=== PATIENT | female | born 1960 | race Caucasian/White ===

== ENCOUNTER 2020-01-22 05:25 | Emergency (ER) | payer BC ==
[2020-01-22] MEDS ORDERED: Lactated Ringers 1,000 ML IV ONE (05:50)
[2020-01-22] MEDS ORDERED: Ondansetron 4 MG/2 ML SDV IV ONE (05:50)
[2020-01-22] MEDS ORDERED: Haloperidol Lactate 5 MG/ML SDV IVPUSH ONE (05:51)
--- NOTE | 2020-01-22 05:55 | EDM.PDOC ---
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(s), Other (see below) - Related Data Allergies Allergy/AdvReac Type Severity Reaction Status Date / Time No Known Allergies Allergy Verified 01/22/20 05:47 Home Meds: Home Meds Aspirin [Aspirin EC] 325 mg PO DAILY 01/19/20 [History] Dipyridamole 75 mg PO BID 01/19/20 [History] Fenofibrate 160 mg PO DAILY 01/19/20 [History] Morphine [MS Contin] 15 mg PO TID 01/19/20 [History] Prochlorperazine [Compazine] 10 mg PO Q4H PRN 01/19/20 [History] hydroCHLOROthiazide [Hydrochlorothiazide] 12.5 mg PO DAILY 01/19/20 [History] metFORMIN [Glucophage XR] 500 mg PO BIDMEALS 01/19/20 [History] oxyCODONE 10 mg PO Q4H PRN 01/19/20 [History] ED EXAM, GI/ABD - Physical Exam Text/Narrative:: Exam unchanged from exam documented by the ACCOUNTS RECEIVABLE SPECIALIST for this encounter. Departure - Departure Time of Disposition: 10:00 Disposition: Home, Self-Care 01 Condition: Fair Clinical Impression: Chemotherapy induced nausea and vomiting, Personal history of malignant neoplasm of pancreas, Hypomagnesemia, Hypokalemia, Dehydration - Discharge Information *PRESCRIPTION DRUG MONITORING PROGRAM REVIEWED*: Not Applicable *COPY OF PRESCRIPTION DRUG MONITORING REPORT IN PATIENT PABLO: Not Applicable Instructions: Nausea and Vomiting, Adult, [id number], Dehydration, Adult, [id number], Potassium Content of Foods Forms: ED Department Discharge Additional Instructions: Rx: Zofran ODT 8mg Drink plenty of water. Follow up with your oncologist or primary clinic as needed. <Ivan Pack - Last Filed: 01/23/20 17:35> ED HPI GENERAL MEDICAL PROBLEM - General Source of Information: Reports: Patient History Limitations: Reports: No Limitations - History of Present Illness INITIAL COMMENTS - FREE TEXT/NARRATIVE: Patient comes emergency department today from home with complaints of nausea vomiting and dehydration. This patient just had her first round of chemotherapy on for pancreatic cancer. For the past 2 days she has been unable to eat or drink anything. She initially had some diarrhea but this has resolved. She has been on no antibiotics recently. She has had no fever chills generalized aches or pains. She does have some malaise and fatigue. No chest pain no shortness of breath or difficulty breathing. No cough or congestion. She does complain of generalized weakness no syncope or palpitations. No covert exposure no covert symptoms. She has abdominal pain when she has vomiting but this resolves on its own following the discontinuation of the vomiting. No hematuria dysuria or urinary frequency. No black or tarry stools. 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 Musculoskeletal History: Reports: Arthritis Neurological History: Reports: TIA Psychiatric History: Reports: Anxiety Endocrine/Metabolic History: Reports: Diabetes, Type II Hematologic History: Reports: None Immunologic History: Reports: None Oncologic (Cancer) History: Reports: Breast, Pancreatic Dermatologic History: Reports: None - Infectious Disease History Infectious Disease History: Reports: None - Past Surgical History HEENT Surgical History: Reports: Tonsillectomy Cardiovascular Surgical History: Reports: None Respiratory Surgical History: Reports: None GI Surgical History: Reports: None Female Surgical History: Reports: Breast Biopsy, Breast Reduction, Mastectomy Neurological Surgical History: Reports: None Musculoskeletal Surgical History: Reports: None Oncologic Surgical History: Reports: Biopsy of Breast, Mastectomy Social & Family History - Family History Family Medical History: Noncontributory - Tobacco Use Smoking Status *Q: Current Every Day Smoker Years of Tobacco use: 40 Packs/Tins Daily: 0.5 - Caffeine Use Caffeine Use: Reports: None - Recreational Drug Use Recreational Drug Use: No ED ROS GENERAL - Review of Systems Review Of Systems: Comprehensive ROS is negative, except as noted in HPI. ED EXAM, GI/ABD - Physical Exam Exam: See Below Exam Limited By: No Limitations General Appearance: Alert, WD/WN, No Apparent Distress Eyes: Bilateral: EOMI Ears: Normal External Exam Nose: Normal Inspection Throat/Mouth: No: Normal Inspection (Oral mucosa is quite dry), Normal Lips (Lips are dry and cracked) Head: Atraumatic, Normocephalic Neck: Normal Inspection, Supple Respiratory/Chest: No Respiratory Distress, Lungs Clear, Normal Breath Sounds, Chest Non-Tender Cardiovascular: Normal Peripheral Pulses, Regular Rate, Rhythm GI/Abdominal Exam: Normal Bowel Sounds, Soft, Non-Tender, No Distention (Female) Exam: Deferred Rectal (Female) Exam: Deferred Back Exam: Normal Inspection Extremities: Normal Inspection, Normal Range of Motion, Normal Capillary Refill Neurological: Alert, Oriented, Normal Cognition, No Motor/Sensory Deficits Psychiatric: Normal Affect, Normal Mood Skin Exam: Dry, Intact, Normal Color, Cool Lymphatic: No Adenopathy Course - Vital Signs Last Recorded V/S: Last Vital Signs Temp 97.3 F 01/22/20 05:43 Pulse 101 H 01/22/20 05:43 Resp 16 01/22/20 05:43 BP 136/83 01/22/20 05:43 Pulse Ox 95 01/22/20 05:43 - Orders/Labs/Meds Labs: Laboratory Tests 01/22/20 01/22/20 01/22/20 Range/Units 06:00 06:00 06:00 WBC 4.0 L (5.0-10.0) 10^3/uL RBC 3.66 L (4.2-5.4) 10^6/uL Hgb 10.1 L (12.0-16.0) g/dL Hct 31.4 L (37.0-47.0) % MCV 85.8 (80-100) fL MCH 27.6 (27.0-34.0) pg MCHC 32.2 L (33.0-35.0) g/dL Plt Count 223 (150-450) 10^3/uL Neut % (Auto) 73.1 (42.2-75.2) % Lymph % (Auto) 21.2 (20.5-50.1) % [place] % (Auto) 1.0 L (2-8) % Eos % (Auto) 4.2 H (1.0-3.0) % Baso % (Auto) 0.5 (0.0-1.0) % Sodium 137 (136-145) mmol/L Potassium 3.2 L (3.5-5.1) mmol/L Chloride 96 L (98-107) mmol/L Carbon Dioxide 30 (21-32) mmol/L Anion Gap 14.2 H (7-13) mEq/L BUN 28 H (7-18) mg/dL Creatinine 1.38 H (0.55-1.02) mg/dL Est Cr Clr Drug Dosing 36.97 mL/min Estimated GFR (MDRD) 39 BUN/Creatinine Ratio 20.3 (No establ ref range) Glucose 169 H (74-99) mg/dL Lactic Acid 1.0 (0.4-2.0) mmol/L Calcium 10.0 (8.5-10.1) mg/dL Magnesium 1.5 L (1.8-2.4) mg/dL Total Bilirubin 0.6 (0.2-1.0) mg/dL AST 17 (15-37) U/L ALT 13 L (14-59) U/L Alkaline Phosphatase 63 (46-116) U/L C-Reactive Protein 4.3 H (0.0-0.9) mg/dL Total Protein 7.5 (6.4-8.2) g/dL Albumin 3.4 (3.4-5.0) g/dL Globulin 4.1 Albumin/Globulin Ratio 0.8 Lipase 36 L (73-393) U/L Urine Color (YELLOW) Urine Appearance (CLEAR) Urine pH (5.0-9.0) Ur Specific [place] (1.005-1.030) Urine Protein (NEGATIVE) Urine Glucose (UA) (NEGATIVE) Urine Ketones (NEGATIVE) Urine Occult Blood (NEGATIVE) Urine Nitrite (NEGATIVE) Urine Bilirubin (NEGATIVE) Urine Urobilinogen (0.2-1.0) mg/dL Ur Leukocyte Esterase (NEGATIVE) Urine RBC /HPF Urine WBC (0-5/HPF) /HPF Ur Epithelial Cells (NOT SEEN) /HPF Amorphous Sediment (NOT SEEN) /HPF Urine Bacteria (0-FEW/HPF) /HPF Granular Casts (Auto) Urine Mucus (NOT SEEN) /LPF 09/08/20 Range/Units 07:15 WBC (5.0-10.0) 10^3/uL RBC (4.2-5.4) 10^6/uL Hgb (12.0-16.0) g/dL Hct (37.0-47.0) % MCV (80-100) fL MCH (27.0-34.0) pg MCHC (33.0-35.0) g/dL Plt Count (150-450) 10^3/uL Neut % (Auto) (42.2-75.2) % Lymph % (Auto) (20.5-50.1) % [place] % (Auto) (2-8) % Eos % (Auto) (1.0-3.0) % Baso % (Auto) (0.0-1.0) % Sodium (136-145) mmol/L Potassium (3.5-5.1) mmol/L Chloride (98-107) mmol/L Carbon Dioxide (21-32) mmol/L Anion Gap (7-13) mEq/L BUN (7-18) mg/dL Creatinine (0.55-1.02) mg/dL Est Cr Clr Drug Dosing mL/min Estimated GFR (MDRD) BUN/Creatinine Ratio (No establ ref range) Glucose (74-99) mg/dL Lactic Acid (0.4-2.0) mmol/L Calcium (8.5-10.1) mg/dL Magnesium (1.8-2.4) mg/dL Total Bilirubin (0.2-1.0) mg/dL AST (15-37) U/L ALT (14-59) U/L Alkaline Phosphatase (46-116) U/L C-Reactive Protein (0.0-0.9) mg/dL Total Protein (6.4-8.2) g/dL Albumin (3.4-5.0) g/dL Globulin Albumin/Globulin Ratio Lipase (73-393) U/L Urine Color Dark yellow (YELLOW) Urine Appearance Slightly cloudy (CLEAR) Urine pH 7.0 (5.0-9.0) Ur Specific [place] 1.025 (1.005-1.030) Urine Protein 30 H (NEGATIVE) Urine Glucose (UA) Negative (NEGATIVE) Urine Ketones Trace H (NEGATIVE) Urine Occult Blood Moderate H (NEGATIVE) Urine Nitrite Negative (NEGATIVE) Urine Bilirubin Small H (NEGATIVE) Urine Urobilinogen 0.2 (0.2-1.0) mg/dL Ur Leukocyte Esterase Negative (NEGATIVE) Urine RBC 20-30 H /HPF Urine WBC 0-5 (0-5/HPF) /HPF Ur Epithelial Cells Moderate H (NOT SEEN) /HPF Amorphous Sediment Few (NOT SEEN) /HPF Urine Bacteria Few (0-FEW/HPF) /HPF Granular Casts (Auto) Occasional Urine Mucus Rare (NOT SEEN) /LPF Meds: Medications Discontinued Medications Generic Name Dose Route Start Last Admin Trade Name Freq PRN Reason Stop Dose Admin Haloperidol Lactate 1.25 mg 01/22/20 05:51 01/22/20 06:08 Haldol IVPUSH 01/22/20 05:52 1.25 mg ONETIME ONE Administration Lactated Ringer's 1,000 mls @ 1,000 mls/hr 01/22/20 05:50 01/22/20 09:43 Ringers, Lactated IV 01/22/20 06:49 Infused .BOLUS ONE Infusion Magnesium Sulfate 2 gm/ Premix 50 mls @ 25 mls/hr 01/22/20 06:41 01/22/20 09:43 IV 01/22/20 08:40 Infused ONETIME ONE Infusion Potassium Chloride/Sodium Chloride 1,000 mls @ 500 mls/hr 01/22/20 07:00 01/22/20 07:33 Normal Saline With 20 Meq Kcl IV 250 mls/hr ASDIRECTED [facility] Administration Ondansetron HCl 4 mg 01/22/20 05:50 01/22/20 06:08 Zofran IV 01/22/20 05:51 4 mg ONETIME ONE Administration - Re-Assessments/Exams Free Text/Narrative Re-Assessment/Exam: 01/22/20 05:55 Labs drawn. UA pending. 1 L LR wide open. Ondansetron 4 mg IV push. Haloperidol 1.25 mg IV push. Labs with hypokalemia as well as hypomagnesemia. 1 liter of NS with 20meq of K at 500mls/hr. 2 grams Mag sulfate IVPB care to Dr. Stanford at the change of shift 0700. Sepsis Event Note (ED) - Evaluation Sepsis Screening Result: No Definite Risk
[2020-01-22 06:39] LABS: ANION GAP 14.2 mEq/L (7-13)
[2020-01-22] MEDS ORDERED: Magnesium Sulfate/Water 2 GM in Premix Bag 1 BAG IV ONE (06:41)
[2020-01-22] MEDS ORDERED: NS + KCl 20mEq/L 1,000 ML IV SCH (07:00)
== END 2020-01-22 09:50 | disposition home or self-care (01) ==
LOC: DL.ED 05:25
DX: E86.0 Dehydration (principal); R11.2 Nausea with vomiting, unspecified; E83.42 Hypomagnesemia; E87.6 Hypokalemia; Z85.07 Personal history of malignant neoplasm of pancreas; I10 Essential (primary) hypertension; M19.90 Unspecified osteoarthritis, unspecified site; E11.9 Type 2 diabetes mellitus without complications; F17.210 Nicotine dependence, cigarettes, uncomplicated; Z79.82 Long term (current) use of aspirin; Z79.899 Other long term (current) drug therapy
CPT/HCPCS: 36415; 80053; 81001; 83605; 83690; 83735; 85025; 86140; 96361; 96365; 96366; 96368; 96375; 99284; J1630; J2405; J3475; J3480; J7120

== ENCOUNTER 2020-01-29 02:52 | Inpatient (IN) | payer BC ==
--- NOTE | 2020-01-29 02:56 | EDM.PDOC ---
ED HPI GENERAL MEDICAL PROBLEM - General Stated Complaint: TEMP OF 100.7/DOING CHEMO Time Seen by Provider: 01/29/20 03:10 Source of Information: Reports: Patient, RN History Limitations: Reports: No Limitations - History of Present Illness INITIAL COMMENTS - FREE TEXT/NARRATIVE: ED with c/o of fever. Reports 100.7 at home. Recent dx pancreatic CA. Chemo 01/25. Has had intermittent diarrhea since 01/25 4 loose stools yesterday.. Admits did take senokot on 01/25 for constipation. Nausea not vomiting past 24 hours. Abdomen Pain Score (Numeric/FACES): 5 Back Pain Score (Numeric/FACES): 6 - Related Data Allergies Allergy/AdvReac Type Severity Reaction Status Date / Time No Known Allergies Allergy Verified 01/29/20 04:26 Home Meds: Home Meds Aspirin [Aspirin EC] 325 mg PO DAILY 01/19/20 [History] Dipyridamole 75 mg PO BID 01/19/20 [History] Fenofibrate 160 mg PO DAILY 01/19/20 [History] Morphine [MS Contin] 15 mg PO TID 01/19/20 [History] Prochlorperazine [Compazine] 10 mg PO Q4H PRN 01/19/20 [History] hydroCHLOROthiazide [Hydrochlorothiazide] 12.5 mg PO DAILY 01/19/20 [History] metFORMIN [Glucophage XR] 750 mg PO BIDMEALS 01/19/20 [History] oxyCODONE 10 mg PO Q4H PRN 01/19/20 [History] Past Medical History HEENT History: Reports: None Cardiovascular History: Reports: Heart Murmur, High Cholesterol, Hypertension Respiratory History: Reports: None Gastrointestinal History: Reports: GERD Genitourinary History: Reports: None 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 Musculoskeletal History: Reports: Arthritis Neurological History: Reports: TIA Psychiatric History: Reports: Anxiety Endocrine/Metabolic History: Reports: Diabetes, Type II Hematologic History: Reports: None Immunologic History: Reports: None Oncologic (Cancer) History: Reports: Breast, Pancreatic Dermatologic History: Reports: None - Infectious Disease History Infectious Disease History: Reports: None - Past Surgical History HEENT Surgical History: Reports: Tonsillectomy Cardiovascular Surgical History: Reports: None Respiratory Surgical History: Reports: None GI Surgical History: Reports: None Female Surgical History: Reports: Breast Biopsy, Breast Reduction, Mastectomy Neurological Surgical History: Reports: None Musculoskeletal Surgical History: Reports: None Oncologic Surgical History: Reports: Biopsy of Breast, Mastectomy Social & Family History - Family History Family Medical History: Noncontributory - Caffeine Use Caffeine Use: Reports: None ED ROS GENERAL - Review of Systems Review Of Systems: See Below Constitutional: Reports: No Symptoms, Fever, Malaise, Decreased Appetite HEENT: Reports: No Symptoms Respiratory: Reports: No Symptoms Cardiovascular: Reports: No Symptoms GI/Abdominal: Reports: Abdominal Pain (chronic unchanged), Diarrhea (x4 yesterday) : Denies: Dysuria, Flank Pain, Frequency, Urinary Retention Musculoskeletal: Reports: Back Pain (chronic) Skin: Reports: No Symptoms Neurological: Reports: No Symptoms ED EXAM, GENERAL - Physical Exam Exam: See Below Exam Limited By: No Limitations General Appearance: Alert, Mild Distress, Thin Eye Exam: Bilateral Eye: EOMI, PERRL Ears: Normal External Exam, Normal Canal, Normal TMs Nose: Normal Inspection Throat/Mouth: Normal Inspection Head: Atraumatic, Normocephalic Neck: Normal Inspection Respiratory/Chest: No Respiratory Distress, Lungs Clear, Normal Breath Sounds Cardiovascular: Regular Rate, Rhythm (with murmur right upper) GI/Abdominal: Normal Bowel Sounds, Soft. No: Distended, Guarding Extremities: Normal Inspection Neurological: Alert, Oriented, Normal Cognition Psychiatric: Flat Affect Skin Exam: Warm, Dry, Intact, Normal Color Course - Vital Signs Last Recorded V/S: Last Vital Signs Temp 99.3 F 01/29/20 23:10 Pulse 76 01/29/20 23:10 Resp 20 01/29/20 23:10 BP 136/58 L 01/29/20 23:10 Pulse Ox 97 01/29/20 23:10 - Orders/Labs/Meds Orders: Active Orders 24 hr Category Date Time Status CULTURE BLOOD [BC] Stat Lab 01/29/20 03:33 Results Medication Orders Acetaminophen (Tylenol) 650 mg PO Q4H PRN PRN Reason: Pain (Mild 1-3)/fever Last Admin: 01/29/20 17:45 Dose: 650 mg Documented by: Admin: 01/29/20 07:38 Dose: 650 mg Documented by: CAREMOR Fentanyl (Sublimaze) 50 mcg IVPUSH Q4HR PRN PRN Reason: Pain Last Admin: 01/30/20 01:24 Dose: 50 mcg Documented by: Admin: 01/29/20 20:06 Dose: 50 mcg Documented by: Admin: 01/29/20 15:10 Dose: 50 mcg Documented by: [email or web address] Admin: 01/29/20 07:38 Dose: 50 mcg Documented by: ALEX Heparin Sodium (Porcine) (Heparin Sodium) 5,000 units SUBCUT Q12H [facility] Last Admin: 01/29/20 17:44 Dose: 5,000 units Documented by: ALXE Sodium Chloride (Normal Saline) 500 mls @ 50 mls/hr IV .BOLUS [facility] Last Admin: 01/29/20 04:15 Dose: 50 mls/hr Documented by: RENETTA Sodium Chloride (Normal Saline) 1,000 mls @ 100 mls/hr IV ASDIRECTED [facility] Last Admin: 01/29/20 19:15 Dose: 100 mls/hr Documented by: Infusion: 01/29/20 16:15 Dose: 100 mls/hr Documented by: Admin: 01/29/20 06:15 Dose: 100 mls/hr Documented by: ROCKY Piperacillin Sod/Tazobactam (Sod 3.375 gm/ Sodium Chloride) 100 mls @ 200 mls/hr IV Q6H [facility] Last Infusion: 01/29/20 23:15 Dose: 200 mls/hr Documented by: Admin: 01/29/20 22:37 Dose: 200 mls/hr Documented by: Infusion: 01/29/20 18:08 Dose: 200 mls/hr Documented by: Admin: 01/29/20 17:30 Dose: 200 mls/hr Documented by: Infusion: 01/29/20 12:31 Dose: 200 mls/hr Documented by: Admin: 01/29/20 12:01 Dose: 200 mls/hr Documented by: Infusion: 01/29/20 06:58 Dose: 200 mls/hr Documented by: Admin: 01/29/20 06:13 Dose: 200 mls/hr Documented by: ROCKY Vancomycin HCl 1 gm/ Sodium (Chloride) 250 mls @ 166.667 mls/hr IV Q24H [facility] Last Admin: 01/29/20 07:37 Dose: 166.667 mls/hr Documented by: ALEX Dronabinol (Marinol) 2.5mg Cap Non- Form Item 0 each PO BIDAC [facility] Ondansetron HCl (Zofran) 4 mg IVPUSH Q6H PRN PRN Reason: Nausea/Vomiting Tbo-Filgrastim (Granix) 480 mcg SUBCUT DAILY [facility] Last Admin: 01/29/20 12:02 Dose: 480 mcg Documented by: ALEX Vancomycin HCl (Pharmacy To Dose - Vancomycin) 1 dose .XX ASDIRECTED [facility] Labs: Laboratory Tests 01/29/20 01/29/20 01/29/20 Range/Units 03:04 03:04 03:04 WBC 0.9 L* (5.0-10.0) 10^3/uL RBC 3.75 L (4.2-5.4) 10^6/uL Hgb 10.6 L (12.0-16.0) g/dL Hct 32.1 L (37.0-47.0) % MCV 85.6 (80-100) fL MCH 28.3 (27.0-34.0) pg MCHC 33.0 (33.0-35.0) g/dL Plt Count 198 (150-450) 10^3/uL Neut % (Auto) 19.2 L (42.2-75.2) % Lymph % (Auto) 55.3 H (20.5-50.1) % [place] % (Auto) 22.3 H (2-8) % Eos % (Auto) 2.1 (1.0-3.0) % Baso % (Auto) 1.1 H (0.0-1.0) % Add Manual Diff Yes Neutrophils % (Manual) 23 L (42-75) % Lymphocytes % (Manual) 57 H (20-50) % Monocytes % (Manual) 19 H (2-8) % Eosinophils % (Manual) 1 (1-3) % Sodium 133 L (136-145) mmol/L Potassium 3.3 L (3.5-5.1) mmol/L Chloride 91 L (98-107) mmol/L Carbon Dioxide 31 (21-32) mmol/L Anion Gap 14.3 H (7-13) mEq/L BUN 34 H (7-18) mg/dL Creatinine 1.48 H (0.55-1.02) mg/dL Est Cr Clr Drug Dosing 34.47 mL/min Estimated GFR (MDRD) 36 BUN/Creatinine Ratio 23.0 (No establ ref range) Glucose 158 H (74-99) mg/dL Lactic Acid 1.2 (0.4-2.0) mmol/L Calcium 10.6 H (8.5-10.1) mg/dL Magnesium 1.7 L (1.8-2.4) mg/dL Total Bilirubin 0.4 (0.2-1.0) mg/dL AST 13 L (15-37) U/L ALT 12 L (14-59) U/L Alkaline Phosphatase 87 (46-116) U/L Total Protein 8.5 H (6.4-8.2) g/dL Albumin 3.7 (3.4-5.0) g/dL Globulin 4.8 Albumin/Globulin Ratio 0.8 Amylase 17 L (25-115) U/L Lipase 45 L (73-393) U/L Meds: Medications Generic Name Dose Route Start Last Admin Trade Name Freq PRN Reason Stop Dose Admin Acetaminophen 650 mg 01/29/20 04:05 01/29/20 17:45 Tylenol PO 650 mg Q4H PRN Administration Pain (Mild 1-3)/fever Fentanyl 50 mcg 01/29/20 07:28 01/30/20 01:24 Sublimaze IVPUSH 50 mcg Q4HR PRN Administration Pain Heparin Sodium (Porcine) 5,000 units 01/29/20 18:00 01/29/20 17:44 Heparin Sodium SUBCUT 5,000 units Q12H [facility] Administration Sodium Chloride 500 mls @ 50 mls/hr 01/29/20 04:15 01/29/20 04:15 Normal Saline IV 50 mls/hr .BOLUS [facility] Administration Sodium Chloride 1,000 mls @ 100 mls/hr 01/29/20 04:15 01/29/20 19:15 Normal Saline IV 100 mls/hr ASDIRECTED [facility] Administration Piperacillin Sod/Tazobactam 100 mls @ 200 mls/hr 01/29/20 05:00 01/29/20 23:15 Sod 3.375 gm/ Sodium Chloride IV Infused Q6H [facility] Infusion Vancomycin HCl 1 gm/ Sodium 250 mls @ 166.667 mls/hr 01/29/20 06:00 01/29/20 07:37 Chloride IV 166.667 mls/hr Q24H [facility] Administration Dronabinol (Marinol) 0 each 01/29/20 16:00 2.5mg Cap Non- PO Form Item BIDAC [facility] Ondansetron HCl 4 mg 01/29/20 04:05 Zofran IVPUSH Q6H PRN Nausea/Vomiting Tbo-Filgrastim 480 mcg 01/29/20 09:00 01/29/20 12:02 Granix SUBCUT 480 mcg DAILY [facility] Administration Vancomycin HCl 1 dose 01/29/20 04:30 Pharmacy To Dose - Vancomycin .XX ASDIRECTED [facility] Discontinued Medications Generic Name Dose Route Start Last Admin Trade Name Freq PRN Reason Stop Dose Admin Heparin Sodium (Porcine) 5,000 units 01/29/20 04:30 01/29/20 05:49 Heparin Sodium SUBCUT 01/29/20 04:31 5,000 units ONETIME ONE Administration Hydromorphone HCl 0.5 mg 01/29/20 04:13 01/29/20 04:17 Dilaudid IVPUSH 01/29/20 04:14 0.5 mg ONETIME ONE Administration Potassium Chloride 10 meq/ 100 mls @ 100 mls/hr 01/29/20 04:01 01/29/20 07:31 Premix IV 01/29/20 05:00 Infused ONETIME ONE Infusion - Re-Assessments/Exams Free Text/Narrative Re-Assessment/Exam: 01/29/20 04:07 SAM Sampson [facility]. Recommends hopsitalization , however no bed availability at [facility]. Dr Machuca accepting patient [facility]. Departure - Departure Time of Disposition: 04:09 Disposition: Admitted As Inpatient 64 Condition: Good Clinical Impression: Hypokalemia Pancreatic cancer Qualifiers: Pancreatic malignancy location: unspecified Qualified Code(s): C25.9 - Malignant neoplasm of pancreas, unspecified Fever Qualifiers: Fever type: unspecified Qualified Code(s): R50.9 - Fever, unspecified Diarrhea Qualifiers: Diarrhea type: unspecified type Qualified Code(s): R19.7 - Diarrhea, unspecified Neutropenia Qualifiers: Neutropenia type: secondary to cancer chemotherapy Qualified Code(s): D70.1 - Agranulocytosis secondary to cancer chemotherapy - Discharge Information *PRESCRIPTION DRUG MONITORING PROGRAM REVIEWED*: No *COPY OF PRESCRIPTION DRUG MONITORING REPORT IN PATIENT PABLO: No - My Orders Last 24 Hours: My Active Orders 01/29/20 03:33 CULTURE BLOOD [BC] Stat - Assessment/Plan Last 24 Hours: My Active Orders 01/29/20 03:33 CULTURE BLOOD [BC] Stat
[2020-01-29 03:32] LABS: ANION GAP 14.3 mEq/L (7-13)
[2020-01-29] MEDS ORDERED: Potassium Chloride 10 MEQ in Premix Bag 1 BAG IV ONE (04:01)
[2020-01-29] MEDS ORDERED: HYDROmorphone 0.5 MG/0.5 ML Syringe IVPUSH ONE (04:13)
[2020-01-29] MEDS ORDERED: Sodium Chloride 0.9% 500 ML IV SCH (04:15)
--- NOTE | 2020-01-29 04:17 | PCM.HP ---
H&P History of Present Illness - General Date of Service: 01/29/20 Admit Problem/Dx: Admission Diagnosis/Problem Admission Diagnosis/Problem Fever Source of Information: Patient History Limitations: Reports: No Limitations - History of Present Illness Initial Comments - Free Text/Narative: The patient is a 59-year-old female with medical history of diabetes mellitus type 2, hypertension, dyslipidemia, anxiety disorder, history of revealed breast mastectomy, who recently was diagnosed with pancreatic cancer in December 2019. Patient was started on chemotherapy. The last chemotherapy was about 2 weeks ago and she is due to receive another chemotherapy tomorrow. She started having diarrhea yesterday. In the past 24 hours has had 4 bouts of diarrhea. Stool is nonbloody and nonmucoid. Also started having fever and came to the emergency room with temperature 100.7. Patient was found to be neutropenic. White cell count was 0.9. Abdomen Pain Score (Numeric/FACES): 5 Back Pain Score (Numeric/FACES): 6 - Related Data Allergies/Adverse Reactions: Allergies Allergy/AdvReac Type Severity Reaction Status Date / Time No Known Allergies Allergy Verified 01/29/20 04:26 Home Medications: Home Meds Aspirin [Aspirin EC] 325 mg PO DAILY 01/19/20 [History] Dipyridamole 75 mg PO BID 01/19/20 [History] Fenofibrate 160 mg PO DAILY 01/19/20 [History] Morphine [MS Contin] 15 mg PO TID 01/19/20 [History] Prochlorperazine [Compazine] 10 mg PO Q4H PRN 01/19/20 [History] hydroCHLOROthiazide [Hydrochlorothiazide] 12.5 mg PO DAILY 01/19/20 [History] metFORMIN [Glucophage XR] 750 mg PO BIDMEALS 01/19/20 [History] oxyCODONE 10 mg PO Q4H PRN 01/19/20 [History] Past Medical History HEENT History: Reports: None Cardiovascular History: Reports: Heart Murmur, High Cholesterol, Hypertension Respiratory History: Reports: None Gastrointestinal History: Reports: GERD Genitourinary History: Reports: None [employer] History: Reports: None Musculoskeletal History: Reports: Arthritis Neurological History: Reports: TIA Psychiatric History: Reports: Anxiety Endocrine/Metabolic History: Reports: Diabetes, Type II Hematologic History: Reports: None Immunologic History: Reports: None Oncologic (Cancer) History: Reports: Breast, Pancreatic Dermatologic History: Reports: None - Infectious Disease History Infectious Disease History: Reports: None - Past Surgical History HEENT Surgical History: Reports: Tonsillectomy Cardiovascular Surgical History: Reports: None Respiratory Surgical History: Reports: None GI Surgical History: Reports: None Female Surgical History: Reports: Breast Biopsy, Breast Reduction, Mastectomy Neurological Surgical History: Reports: None Musculoskeletal Surgical History: Reports: None Oncologic Surgical History: Reports: Biopsy of Breast, Mastectomy Social & Family History - Family History Family Medical History: Noncontributory - Tobacco Use Smoking Status *Q: Current Every Day Smoker Years of Tobacco use: 40 Packs/Tins Daily: 0.1 - Caffeine Use Caffeine Use: Reports: None - Recreational Drug Use Recreational Drug Use: No H&P Review of Systems - Review of Systems: Review Of Systems: See Below General: Reports: Fever Pulmonary: Reports: No Symptoms Cardiovascular: Reports: No Symptoms Gastrointestinal: Reports: Diarrhea, Nausea Musculoskeletal: Reports: No Symptoms Skin: Reports: No Symptoms Psychiatric: Reports: No Symptoms Neurological: Reports: No Symptoms Exam - Exam Exam: See Below - Vital Signs Vital Signs: Last Vital Signs Temp 37.5 C 01/29/20 03:07 Pulse 108 H 01/29/20 03:07 Resp 19 01/29/20 03:07 BP 133/70 01/29/20 03:07 Pulse Ox 97 01/29/20 03:07 Weight: 57.425 kg - Exam General: Alert, Oriented, Cooperative HEENT: PERRLA, Hearing Intact, Mucosa Moist & [place], Nares Patent, Normal Nasal Septum, Posterior Pharynx Clear, Conjunctiva Clear, EOMI, EACs Clear, TMs Clear Neck: Supple, Trachea Midline, 2 Lungs: Clear to Auscultation, Normal Respiratory Effort Cardiovascular: Regular Rate, Regular Rhythm GI/Abdominal Exam: Normal Bowel Sounds, Soft, Non-Tender, No Organomegaly, No Distention, No Abnormal Bruit, No Mass, Pelvis Stable (Female) Exam: Normal External Exam, Normal Speculum Exam, Normal Bimanual Exam Extremities: Normal Inspection, Normal Range of Motion, Non-Tender, No Pedal Edema, Normal Capillary Refill Skin: Warm, Dry, Intact Psychiatric: Alert, Normal Affect, Normal Mood - Patient Data Lab Results Last 24 hrs: Laboratory Results - last 24 hr 01/29/20 01/29/20 01/29/20 Range/Units 03:04 03:04 03:04 WBC 0.9 L* (5.0-10.0) 10^3/uL RBC 3.75 L (4.2-5.4) 10^6/uL Hgb 10.6 L (12.0-16.0) g/dL Hct 32.1 L (37.0-47.0) % MCV 85.6 (80-100) fL MCH 28.3 (27.0-34.0) pg MCHC 33.0 (33.0-35.0) g/dL Plt Count 198 (150-450) 10^3/uL Neut % (Auto) 19.2 L (42.2-75.2) % Lymph % (Auto) 55.3 H (20.5-50.1) % Coleman % (Auto) 22.3 H (2-8) % Eos % (Auto) 2.1 (1.0-3.0) % Baso % (Auto) 1.1 H (0.0-1.0) % Add Manual Diff Yes Neutrophils % (Manual) 23 L (42-75) % Lymphocytes % (Manual) 57 H (20-50) % Monocytes % (Manual) 19 H (2-8) % Eosinophils % (Manual) 1 (1-3) % Sodium 133 L (136-145) mmol/L Potassium 3.3 L (3.5-5.1) mmol/L Chloride 91 L (98-107) mmol/L Carbon Dioxide 31 (21-32) mmol/L Anion Gap 14.3 H (7-13) mEq/L BUN 34 H (7-18) mg/dL Creatinine 1.48 H (0.55-1.02) mg/dL Est Cr Clr Drug Dosing 34.47 mL/min Estimated GFR (MDRD) 36 BUN/Creatinine Ratio 23.0 (No establ ref range) Glucose 158 H (74-99) mg/dL Lactic Acid 1.2 (0.4-2.0) mmol/L Calcium 10.6 H (8.5-10.1) mg/dL Magnesium 1.7 L (1.8-2.4) mg/dL Total Bilirubin 0.4 (0.2-1.0) mg/dL AST 13 L (15-37) U/L ALT 12 L (14-59) U/L Alkaline Phosphatase 87 (46-116) U/L Total Protein 8.5 H (6.4-8.2) g/dL Albumin 3.7 (3.4-5.0) g/dL Globulin 4.8 Albumin/Globulin Ratio 0.8 Amylase 17 L (25-115) U/L Lipase 45 L (73-393) U/L Result Diagrams: 01/29/20 03:04 01/29/20 03:04 Jigar Results Last 24 hrs: Microbiology 01/29/20 03:33 Anaerobic Blood Culture - Final Blood - Venous - Lab Draw Problem List Initiated/Reviewed/Updated: Yes Orders Last 24hrs: Active Orders 24 hr Category Date Time Status Admission Diagnosis [ADT] Stat ADT 01/29/20 03:57 Ordered Admission Status [Patient Status] [ADT] Routine ADT 01/29/20 03:57 Active Patient Status [ADT] Routine ADT 01/29/20 04:05 Ordered Cardiac Monitoring [RC] . DIRECTED Care 01/29/20 03:57 Active Intake and Output [RC] QSHIFT Care 01/29/20 04:07 Ordered Oxygen Therapy [RC] PRN Care 01/29/20 04:05 Ordered Up ad Maryse [RC] ASDIRECTED Care 01/29/20 04:05 Ordered VTE/DVT Education [RC] PER UNIT ROUTINE Care 01/29/20 04:05 Ordered Vital Signs [RC] Q4H Care 01/29/20 04:05 Ordered Full Liquid Diet [DIET] Diet 01/29/20 Breakfast Ordered CBC WITH AUTO DIFF [HEME] AM Lab 01/29/20 05:11 Ordered COMPREHENSIVE METABOLIC PN,CMP [CHEM] AM Lab 01/29/20 05:11 Ordered CULTURE BLOOD [BC] Stat Lab 01/29/20 03:04 Received CULTURE BLOOD [BC] Stat Lab 01/29/20 03:33 Results CULTURE SPUTUM + SMEAR [RM] Stat Lab 01/29/20 04:05 Ordered CULTURE URINE [RM] Stat Lab 01/29/20 04:05 Ordered Acetaminophen [TylenoL] Med 01/29/20 04:05 Ordered 650 mg PO Q4H PRN Heparin Sodium Med 01/29/20 04:15 Ordered 5,000 units SUBCUT Q12H Ondansetron [Zofran] Med 01/29/20 04:05 Ordered 4 mg IVPUSH Q6H PRN Potassium Chloride [KCl 10 MEQ in Water 100 ML] 10 meq Med 01/29/20 04:01 Active Premix Bag 1 bag IV ONETIME Sodium Chloride 0.9% [Normal Saline] 1,000 ml Med 01/29/20 04:15 Ordered IV ASDIRECTED Sodium Chloride 0.9% [Normal Saline] 500 ml Med 01/29/20 04:15 Active IV .BOLUS Blood Culture x2 Reflex Set [OM.PC] Stat Oth 01/29/20 02:54 Ordered Resuscitation Status Routine Resus Stat 01/29/20 04:05 Ordered Medication Orders Acetaminophen (Tylenol) 650 mg PO Q4H PRN PRN Reason: Pain (Mild 1-3)/fever Heparin Sodium (Porcine) (Heparin Sodium) 5,000 units SUBCUT Q12H ZACH Potassium Chloride 10 meq/ (Premix) 100 mls @ 100 mls/hr IV ONETIME ONE Stop: 01/29/20 05:00 Last Admin: 01/29/20 04:13 Dose: 100 mls/hr Documented by: RENETTA Sodium Chloride (Normal Saline) 500 mls @ 50 mls/hr IV .BOLUS ZACH Sodium Chloride (Normal Saline) 1,000 mls @ 75 mls/hr IV ASDIRECTED ZACH Ondansetron HCl (Zofran) 4 mg IVPUSH Q6H PRN PRN Reason: Nausea/Vomiting Assessment/Plan Comment:: Patient is a 59-year-old female recently diagnosed with pancreatic cancer and started on chemotherapy. Presented with diarrhea and fever. The patient was found to have neutropenic fever #. Neutropenic fever Patient is neutropenic and had a temperature 100.7 #. Diarrhea Reason for this is not obvious I'll like to rule out C. difficile colitis #. Metastatic pancreatic cancer Has been on chemotherapy Last chemotherapy was 2 weeks ago #. Hypertension Blood pressure is now within acceptable limits #. Diabetes mellitus type 2 Has been on oral hypoglycemic agent metformin #. Acute kidney injury Serum creatinine has come up to 1.48 Likely due to dehydration #. Hypokalemia Likely due to gastrointestinal electrolyte loss #. Hyponatremia Likely due to GI loss #. Hypomagnesemia Likely due to poor oral intake #. Malnutrition Oral intake has been poor. Patient has lost close to 40 pounds Plan: Admit patient to medical floor Start intravenous fluids normal saline going at 100 mL an hour Replace potassium deficit Intravenous fentanyl for pain control Send stool for C. difficile toxin If stool for C. difficile toxin is negative I will start patient on Imodium tablet Obtain repeat basic metabolic panel Obtain repeat serum magnesium and potassium
[2020-01-29] MEDS ORDERED: Heparin Sodium 5,000 Units/ML Vial SUBCUT ONE (04:30)
[2020-01-29] MEDS: Piperacillin/Tazobactam 3.375 GM in Sodium Chloride 0.9% 100 ML IV SCH ×4 (06:13→22:37)
[2020-01-29] MEDS: Sodium Chloride 0.9% 1,000 ML IV SCH ×2 (06:15→19:15)
[2020-01-29] MEDS: fentaNYL 100 MCG/2 ML SDV IVPUSH PRN ×3 (07:38→20:06)
[2020-01-29] MEDS: Acetaminophen 325 MG Tab PO PRN ×2 (07:38→17:45)
[2020-01-29] MEDS ORDERED: [UNRECOGNIZED DRUG - REMARK] PO SCH (16:00)
[2020-01-29] MEDS: Heparin Sodium 5,000 Units/ML Vial SUBCUT SCH (17:44)
[2020-01-30] MEDS: fentaNYL 100 MCG/2 ML SDV IVPUSH PRN ×2 (01:24→05:44)
[2020-01-30] MEDS: Piperacillin/Tazobactam 3.375 GM in Sodium Chloride 0.9% 100 ML IV SCH ×4 (05:03→23:05)
[2020-01-30] MEDS: Heparin Sodium 5,000 Units/ML Vial SUBCUT SCH ×2 (05:09→18:19)
[2020-01-30] MEDS: Sodium Chloride 0.9% 1,000 ML IV SCH ×3 (05:43→23:05)
[2020-01-30] MEDS: Acetaminophen 325 MG Tab PO PRN ×2 (08:16→12:44)
[2020-01-30 08:22] LABS: ANION GAP 13.8 mEq/L (7-13)
[2020-01-30] MEDS: oxyCODONE 5 MG Tab PO PRN (09:34)
[2020-01-30] MEDS: Morphine 15 MG Tab.ER PO SCH ×3 (09:35→21:02)
--- NOTE | 2020-01-30 11:22 | PN ---
DATE: 01/30/2020 SUBJECTIVE: The patient is a 59-year-old lady with past medical history of diabetes, who was recently diagnosed with pancreatic cancer and started on chemotherapy and last chemotherapy was 2 weeks ago. She was admitted with diarrhea and neutropenic fever. She was started on intravenous antibiotics with vancomycin and Zosyn and also started on filgrastim. Stool was sent for C diff and results are still pending. So far, urine culture and blood culture have been negative. The patient this morning is still having some loose bowel movement, diarrhea, and some abdominal cramping, but she denies any chest pain, shortness of breath, headache, nor any other complaints. LABORATORY WORKUP: This morning. CBC: WBC is 2.1, hemoglobin is 7.8, hematocrit is 23.7, platelets are 163. Chem-6: Potassium is 2.8, BUN is 20, creatinine is 1.23, glucose is 122. OBJECTIVE: Vital Signs: Blood pressure is 150/76, pulse of 90, respirations of 17, saturation is 96%, temperature is 99.3. Heart: Regular rate and rhythm. No gallops, no rubs. Lungs: Equal bilaterally. No crackles. No wheezing. Abdomen: Soft. There is mild direct tenderness diffusely. No rebound. Bowel sounds positive. Extremities: Negative for any pedal edema. No calf tenderness. PLAN: We will continue with her present IV antibiotics. We will await the stool C diff, and we will also replete her potassium, and we will continue with the rest of her current management. I am also trying to arrange for transfer of the patient to [facility] because the patient's port is nonfunctional and yesterday there was no bed available in [place], but we will try it again today. [facility] /[id number]
[2020-01-30] MEDS: Potassium Chloride 10 MEQ Tab.ER PO SCH (18:20)
[2020-01-31] MEDS: oxyCODONE 5 MG Tab PO PRN ×2 (00:07→07:44)
[2020-01-31] MEDS: Piperacillin/Tazobactam 3.375 GM in Sodium Chloride 0.9% 100 ML IV SCH (05:08)
[2020-01-31] MEDS: Heparin Sodium 5,000 Units/ML Vial SUBCUT SCH ×2 (05:59→17:57)
[2020-01-31 06:52] LABS: ANION GAP 14.9 mEq/L (7-13)
[2020-01-31] MEDS ORDERED: Potassium Chloride 10 MEQ Tab.ER PO ONE (08:00)
[2020-01-31] MEDS ORDERED: Magnesium Sulfate/Water 2 GM/50 ML BAG IV ONE (09:00)
[2020-01-31] MEDS: Morphine 15 MG Tab.ER PO SCH ×3 (09:27→21:03)
[2020-01-31] MEDS: Potassium Chloride 10 MEQ Tab.ER PO SCH ×2 (09:27→17:56)
--- NOTE | 2020-01-31 09:57 | PN ---
DATE: 01/31/2020 SUBJECTIVE: The patient continues to do well, and since last night, she has not had any diarrhea. She denies any fever or chills, chest pain, shortness of breath, nor any other complaints. LABORATORY DATA: Lab workup this morning. CBC: WBC is 10.2 (improvement), hemoglobin is 8, hematocrit is 24.3, platelet is 230. Chem-6: Potassium is 2.9, anion gap of 14.9, BUN is 15, creatinine is 1.05, glucose is 112. Stool Clostridium difficile is positive. OBJECTIVE: Heart: Regular rate and rhythm. Lungs: Equal bilaterally. No crackles. No wheezing. Abdomen: Soft, nontender. Bowel sounds positive. Extremities: Negative for any pedal edema. No calf tenderness. PLAN: I did speak to [facility] twice yesterday and there is no room available for the patient yet and so she is still on the waiting list for transfer. I am going to replete her magnesium, potassium. I am going to discontinue the filgrastim and discontinue Zosyn and IV vancomycin. We will put her on oral vancomycin 125 mg 4 times a day for her Clostridium difficile colitis. We will recheck the CBC, basic metabolic panel, and magnesium level in a.m. [facility] /[id number]
[2020-01-31] MEDS: Acetaminophen 325 MG Tab PO PRN ×2 (12:47→21:26)
[2020-01-31] MEDS: Vancomycin 125 MG Cap PO SCH ×3 (13:24→21:03)
[2020-01-31] MEDS: Sodium Chloride 0.9% 1,000 ML IV SCH (13:31)
[2020-01-31] MEDS: Ondansetron 4 MG/2 ML SDV IVPUSH PRN ×2 (13:31→21:27)
[2020-02-01] MEDS: oxyCODONE 5 MG Tab PO PRN ×2 (00:35→15:33)
[2020-02-01] MEDS: Sodium Chloride 0.9% 1,000 ML IV SCH (06:07)
[2020-02-01 07:35] LABS: ANION GAP 12.9 mEq/L (7-13); CHLORIDE,CL 107 mmol/L (98-107); SODIUM,NA 141 mmol/L (136-145)
[2020-02-01] MEDS: Vancomycin 125 MG Cap PO SCH ×4 (08:49→20:58)
[2020-02-01] MEDS: Heparin Sodium 5,000 Units/ML Vial SUBCUT SCH ×2 (08:50→21:00)
[2020-02-01] MEDS: Morphine 15 MG Tab.ER PO SCH ×3 (08:50→20:58)
[2020-02-01] MEDS: Potassium Chloride 10 MEQ Tab.ER PO SCH ×2 (08:50→17:39)
--- NOTE | 2020-02-01 10:40 | PN ---
DATE: 02/01/2020 SUBJECTIVE: The patient continues to do well. Still has some mild loose stool, but so far, has not had any significant abdominal pain and denies any fever or chills, nor any other significant complaints. Again, I mentioned to the patient that [facility] did not call us back as there is still no available room for her. LAB WORKUP THIS MORNING: WBC is 26.1, hemoglobin is 8.5, hematocrit is 26.2, platelets 273. Basic metabolic panel: Glucose is 130. The rest of the panel unremarkable. Magnesium level is 1.5. OBJECTIVE: Vital Signs: Blood pressure is 141/61, pulse 74, respirations of 20, temperature of 97.8. Heart: Regular rate and rhythm. Normal S1 and S2. No gallops. No rubs. Lungs: Clear. No crackles. No wheezing. Abdomen: Soft, nontender. Bowel sounds still slightly hyperactive. Extremities: Negative for any pedal edema. No calf tenderness. PLAN: We will discontinue the IV fluids. Otherwise, we will continue with the rest of her management. We will also put her on magnesium oxide orally because her potassium is still slightly low. If the patient continues to do well, then anticipate discharge in a day or 2, and she is just going to follow up with Oncology regarding her next chemotherapy and also for check of her port. [facility] /[id number]
[2020-02-01] MEDS: Acetaminophen 325 MG Tab PO PRN (17:40)
[2020-02-02] MEDS: Acetaminophen 325 MG Tab PO PRN (00:32)
[2020-02-02] MEDS: oxyCODONE 5 MG Tab PO PRN ×2 (00:33→12:16)
[2020-02-02] MEDS: Morphine 15 MG Tab.ER PO SCH ×2 (09:22→13:04)
[2020-02-02] MEDS: Heparin Sodium 5,000 Units/ML Vial SUBCUT SCH (09:23)
[2020-02-02] MEDS: Potassium Chloride 10 MEQ Tab.ER PO SCH (09:23)
[2020-02-02] MEDS: Vancomycin 125 MG Cap PO SCH ×2 (09:23→13:04)
--- NOTE | 2020-02-02 09:54 | PN ---
DATE: 02/02/2020 SUBJECTIVE: The patient continues to do well, still has some episodes of nausea and one episode of emesis and some loose bowel movement, but overall, she is feeling much better, and she denies any fever or chills, chest pain, shortness of breath, or any significant abdominal pain. OBJECTIVE: Vital Signs: Blood pressure is 143/47, pulse 83, respirations of 20, temperature of 99.4, and saturation is 99% on room air. Heart: Regular rate and rhythm. Normal S1 and S2. No gallops. No rubs. Lungs: Equal bilaterally. No crackles. No wheezing. Abdomen: Soft, nontender. Bowel sounds positive. Extremities: Negative for any pedal edema. No calf tenderness. PLAN: We will discharge patient home today. We will continue with oral vancomycin, and we will resume her previous home medication. She is going to follow up with Oncology next week. We will also schedule her for followup appointment with her primary care provider, Crystal Brownlee NP. [facility] /[id number]
--- NOTE | 2020-02-02 10:15 | DISCH ---
FINAL DIAGNOSES: 1. Diarrhea secondary to Clostridium difficile colitis. 2. Neutropenic fever. 3. Pancreatic cancer. 4. Hypertension. 5. Type 2 diabetes mellitus. 6. Hypokalemia. 7. Hypomagnesemia. HISTORY OF PRESENT ILLNESS: Please see H and P. DATA: Pertinent laboratory, x-ray, and other tests on admission, see H and P. Clostridium difficile toxin is positive and blood cultures negative. HOSPITAL COURSE: The patient was admitted to General Medicine floor. She was empirically started on IV antibiotic because of her neutropenic fever and was also placed on Granix for her leukopenia. Potassium and magnesium were also repeated. She was also given IV antibiotics and also heparin subcutaneous for DVT prophylaxis. The patient's fever slowly improved, and WBC slowly improved and actually her WBC prior to discharge was 26. Granix was discontinued as well as the IV antibiotics, and she was placed on oral vancomycin for Clostridium difficile colitis. Hospital course was basically uncomplicated, and she was subsequently discharged. Of note during the hospitalizations, she was being transferred to [facility] in [place] because the port was nonfunctional as well as the neutropenic fever, but there was no room available in [place], so the patient was not transferred, and she just slowly improved and subsequently discharged. CONDITION ON DISCHARGE: Improved. FOLLOWUP: Follow up with Oncology next week as scheduled and follow up with Crystal Brownlee NP, in 1 week with CBC, comp panel, and magnesium level. [facility] /[id number]
== END 2020-02-02 13:10 | disposition home or self-care (01) | DRG 248 ==
LOC: DL.ED 02:52 → DL.MS 03:57
PROVIDERS: ADMIT Hospitalist; ATTEND Internal Medicine
DX: A04.72 Enterocolitis due to Clostridium difficile, not specified as recurrent (principal); D70.9 Neutropenia, unspecified; R50.81 Fever presenting with conditions classified elsewhere; C25.9 Malignant neoplasm of pancreas, unspecified; I10 Essential (primary) hypertension; E11.9 Type 2 diabetes mellitus without complications; E87.6 Hypokalemia; E83.42 Hypomagnesemia; E78.5 Hyperlipidemia, unspecified; F41.9 Anxiety disorder, unspecified; Z90.10 Acquired absence of unspecified breast and nipple; Z92.21 Personal history of antineoplastic chemotherapy; Z79.82 Long term (current) use of aspirin; Z79.899 Other long term (current) drug therapy; Z79.84 Long term (current) use of oral hypoglycemic drugs; E78.00 Pure hypercholesterolemia, unspecified; K21.9 Gastro-esophageal reflux disease without esophagitis; M19.90 Unspecified osteoarthritis, unspecified site; Z86.73 Personal history of transient ischemic attack (TIA), and cerebral infarction without residual deficits; Z85.3 Personal history of malignant neoplasm of breast; Z90.89 Acquired absence of other organs; F17.210 Nicotine dependence, cigarettes, uncomplicated; E46 Unspecified protein-calorie malnutrition; N17.9 Acute kidney failure, unspecified; Z20.828 Contact with and (suspected) exposure to other viral communicable diseases
CPT/HCPCS: 36415; 80048; 80053; 82150; 82962; 83605; 83690; 83735; 85025; 87040; 87086; 87493; 99284; A9270-GY; J1170; J1447; J1644; J2405; J2543; J3010; J3370; J3475; J3480; J7030; J7040; J7050; U0002